=== PATIENT | male | born 1985 | race Caucasian/White ===

== ENCOUNTER 2017-07-05 22:50 | Emergency (ER) | payer SELFPAY ==
[2017-07-05 23:10] VITALS: BP 123/80; PULSE 102; RESP 18; TEMP 98.4; O2SAT 100
[2017-07-05] MEDS ORDERED: LORazepam 2 MG/ML VIAL IM ONE (23:45)
--- NOTE | 2017-07-05 23:56 | PD ---
HPI Chief Complaint: Psychiatric Symptoms Time Seen by Provider: 23:41 Travel History International Travel<30 days: No Contact w/Intl Traveler<30days: No Traveled to known affect area: No History of Present Illness HPI This patient is a daily smoker of heroin. He denies alcohol or IV drug abuse. He has had a lot of difficulty controlling his drug habits. This is caused him to be depressed and today started to have some suicidal thoughts. He presents for voluntary psychiatric evaluation. He denies any acute physical symptoms or complaints other than feeling anxious. Duration 1 week. Severity is moderate. No alleviating factors. Symptoms exacerbated by his drug use. [facility] [place] Social History Alcohol Use: No Tobacco Use: No Substance Use: Yes Allergies-Medications (Allergen,Severity, Reaction): Coded Allergies: No Known Allergies (Unverified , 07/05/17) Review of Systems General / Constitutional: No: Fever Eyes: No: Visual changes HENT: No: Headaches Cardiovascular: No: Chest Pain or Discomfort Respiratory: No: Shortness of Breath Gastrointestinal: No: Abdominal Pain Genitourinary: No: Dysuria Musculoskeletal: No: Pain Skin: No Rash Neurologic: No: Weakness Psychiatric: Positive: Anxiety, Depression, Suicidal Ideations, Substance Abuse Endocrine: No: Polydipsia Hematologic/Lymphatic: No: Easy Bruising Physical Exam Narrative GENERAL: Disheveled well-developed patient with anxiety and depression . SKIN: Focused skin assessment reveals no rash and nodules. Skin is Warm and dry. HEAD: Atraumatic. Normocephalic. EYES: Pupils equal and round. No scleral icterus. No injection or drainage. ENT: No nasal bleeding or discharge. Mucous membranes pink and moist. NECK: Trachea midline. No JVD. CARDIOVASCULAR: Regular rate and rhythm. No murmur appreciated. RESPIRATORY: No accessory muscle use. Clear to auscultation. Breath sounds equal bilaterally. GASTROINTESTINAL: Abdomen soft, non-tender, nondistended. Hepatic and splenic margins not palpable. MUSCULOSKELETAL: No obvious deformities. No clubbing. No cyanosis. No edema. NEUROLOGICAL: Awake and alert. No obvious cranial nerve deficits. Motor grossly within normal limits. Normal speech. PSYCHIATRIC: Anxious mood and affect; insight and judgment poor Data Data Last Documented VS Vital Signs Date Time Temp Pulse Resp B/P (MAP) Pulse Ox O2 Delivery O2 Flow Rate FiO2 07/05/17 23:10 98.4 102 18 123/80 (94) 100 Orders Orders Complete Blood Count With Diff (07/05/17 23:45) Comprehensive Metabolic Panel (07/05/17 23:45) Thyroid Stimulating Hormone (07/05/17 23:45) Psych Screen (07/05/17 23:45) Drug Screen, Random Urine (07/05/17 23:45) Alcohol (Ethanol) (07/05/17 23:45) Lorazepam Inj (Ativan Inj) (07/05/17 23:45) MDM Medical Decision Making Medical Screen Exam Complete: Yes Emergency Medical Condition: Yes Medical Record Reviewed: Yes Differential Diagnosis Suicidal ideation, depression, substance abuse Narrative Course I have reviewed the patient's electronic medical record. I have ordered medical clearance workup to include lab studies and toxicology screen I gave him an injection of Ativan for his anxiety He desires psychiatric evaluation so I have ordered psychiatric screening Diagnosis Primary Impression: Depression with suicidal ideation Additional Impressions: Substance abuse Anxiety Isidro Richter MD July 05, 2017 23:56
[2017-07-06 00:11] LABS: AUTOMATED NEUTROPHIL # 7.9 TH/MM3 (1.8-7.7); BASOPHIL # 0.1 TH/MM3 (0-0.2); BASOPHIL % 0.5 % (0.0-2.0); EOSINOPHIL # 0.1 TH/MM3 (0-0.4); EOSINOPHIL % 0.5 % (0.0-4.0); HEMOGLOBIN 12.5 GM/DL (13.0-17.0); LYMPH % 25.6 % (9.0-44.0); MEAN CELL VOLUME 87.6 FL (80.0-100.0); MEAN CORPUSCULAR HEMOGLOBIN 29.5 PG (27.0-34.0); MEAN CORPUSCULAR HGB CONC 33.7 % (32.0-36.0); MEAN PLATELET VOLUME 6.9 FL (7.0-11.0); MONO % 4.9 % (0.0-8.0); MONOCYTE # 0.6 TH/MM3 (0-0.9); NEUT % 68.5 % (16.0-70.0); PLATELET COUNT 357 TH/MM3 (150-450); RED BLOOD COUNT 4.22 MIL/MM3 (4.50-5.90); RED CELL DISTRIBUTION WIDTH 13.7 % (11.6-17.2); WHITE BLOOD COUNT 11.5 TH/MM3 (4.0-11.0)
[2017-07-06 00:35] LABS: ALBUMIN 3.8 GM/DL (3.4-5.0); ALT (GPT) 21 U/L (12-78); AST (GOT) 22 U/L (15-37); BICARBONATE 28.2 MEQ/L (21.0-32.0); BLOOD UREA NITROGEN 12 MG/DL (7-18); CALCIUM 8.7 MG/DL (8.5-10.1); CHLORIDE 104 MEQ/L (98-107); CREATININE 0.93 MG/DL (0.60-1.30); GLOMERULAR FILTRATION RATE 95 ML/MIN (>89); GLUCOSE,RANDOM 135 MG/DL (74-106); SODIUM (NA) 142 MEQ/L (136-145)
[2017-07-06 00:44] LABS: ALKALINE PHOSPHATASE 54 U/L (45-117); TOTAL BILIRUBIN ADULT 0.4 MG/DL (0.2-1.0)
[2017-07-06 09:28] VITALS: BP 108/61; PULSE 97; RESP 19; O2SAT 99
--- NOTE | 2017-07-06 11:57 | PD ---
Physical Exam Time Seen by Provider: 11:55 Narrative ROMEO Adan has evaluated patient and cleared the patient for discharge. Data Data Last Documented VS Vital Signs Date Time Temp Pulse Resp B/P (MAP) Pulse Ox O2 Delivery O2 Flow Rate FiO2 07/06/17 09:28 97 19 108/61 (77) 99 07/05/17 23:10 98.4 Orders Orders Complete Blood Count With Diff (07/05/17 23:45) Comprehensive Metabolic Panel (07/05/17 23:45) Thyroid Stimulating Hormone (07/05/17 23:45) Psych Screen (07/05/17 23:45) Drug Screen, Random Urine (07/05/17 23:45) Alcohol (Ethanol) (07/05/17 23:45) Lorazepam Inj (Ativan Inj) (07/05/17 23:45) Diet Regular Basic (07/06/17 Breakfast) Labs Laboratory Tests Test 07/05/17 23:55 07/06/17 01:00 White Blood Count 11.5 TH/MM3 Red Blood Count 4.22 MIL/MM3 Hemoglobin 12.5 GM/DL Hematocrit 37.0 % Mean Corpuscular Volume 87.6 FL Mean Corpuscular Hemoglobin 29.5 PG Mean Corpuscular Hemoglobin Concent 33.7 % Red Cell Distribution Width 13.7 % Platelet Count 357 TH/MM3 Mean Platelet Volume 6.9 FL Neutrophils (%) (Auto) 68.5 % Lymphocytes (%) (Auto) 25.6 % Monocytes (%) (Auto) 4.9 % Eosinophils (%) (Auto) 0.5 % Basophils (%) (Auto) 0.5 % Neutrophils # (Auto) 7.9 TH/MM3 Lymphocytes # (Auto) 3.0 TH/MM3 Monocytes # (Auto) 0.6 TH/MM3 Eosinophils # (Auto) 0.1 TH/MM3 Basophils # (Auto) 0.1 TH/MM3 CBC Comment DIFF FINAL Differential Comment Blood Urea Nitrogen 12 MG/DL Creatinine 0.93 MG/DL Random Glucose 135 MG/DL Total Protein 7.0 GM/DL Albumin 3.8 GM/DL Calcium Level 8.7 MG/DL Alkaline Phosphatase 54 U/L Aspartate Amino Transf (AST/SGOT) 22 U/L Alanine Aminotransferase (ALT/SGPT) 21 U/L Total Bilirubin 0.4 MG/DL Sodium Level 142 MEQ/L Potassium Level 3.3 MEQ/L Chloride Level 104 MEQ/L Carbon Dioxide Level 28.2 MEQ/L Anion Gap 10 MEQ/L Estimat Glomerular Filtration Rate 95 ML/MIN Thyroid Stimulating Hormone 3rd Gen 0.963 uIU/ML Ethyl Alcohol Level LESS THAN 3 MG/DL Urine Opiates Screen POS Urine Barbiturates Screen NEG Urine Amphetamines Screen NEG Urine Benzodiazepines Screen NEG Urine Cocaine Screen NEG Urine Cannabinoids Screen POS MDM Supervised Visit with JASON: No Narrative Course ROMEO Adan has evaluated patient and cleared the patient for discharge. Patient contracts safety. Denies suicidal or homicidal ideations. Patient will be provided community resource packet to /[facility] for follow-up. Has friends and family for support. Patient was medically cleared by alternate provider prior to psych screening. Patient has been evaluated by psychiatry and and is now cleared for discharge. Diagnosis Primary Impression: Depression with suicidal ideation Additional Impressions: Substance abuse Anxiety Referrals: [facility] (Out patient) [facility] Primary Care Physician Psychiatrist Louise [facility] Patient Instructions: Anxiety (ED), Depression (ED), General Instructions, Polysubstance Abuse (ED) Additional Instruction: Contract safety to your self and others Stop using drugs Follow-up in the community for community support, such as with Narcotics Anonymous Follow-up with psychiatry Follow-up with primary care provider Follow-up with [facility] Return to the emergency department immediately with worsening of symptoms Med/Other Pt SpecificInfo: No Change to Meds, No Meds Exist/No RX given Disposition: 01 DISCHARGE HOME Condition: Stable Kailey Gasca July 06, 2017 11:57
--- NOTE | 2017-07-06 12:07 | PD ---
History of Present Illness Chief Complaint: Psychiatric Symptoms Time Seen by Provider: 10:00 Travel History International Travel<30 Days: No Contact w/Intl Traveler<30days: No Known affected area: No Legal Status Legal Status: Voluntary History of Present Illness: This is a 32-year-old single, male who presents voluntarily to this facility for self-reported heroin use and anxiety. Patient previously has not been seen at this facility. Reviewed electronic medical record, labs, and discussed case with staff. Patient is positive for opiates and cannabinoids. He was examined in his room and the main ED. He is awake, alert, and oriented 4. His speech is clear, logical, and organized. His mood is overall sad as is his affect. However, he does interact appropriately throughout the interview and smiles and laughs inappropriate places. He does not appear internally stimulated nor is there evidence of thought blocking. Patient reports that last week he was in detox at [facility]. He was released and had been clean for "8 days". He states that he developed severe withdrawal from the Suboxone and had difficulty sleeping. He reports that he "thought I could use a little heroin to help me sleep". 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 He has a mother in the area although he is not allowed to stay there. He reports that his mother has his 4 year old daughter at this time. He denies feeling suicidal , homicidal, experiencing visual or auditory delusions. I can elicit no delusional material. He does state that he is upset with himself for having relapsed and feels depressed about that. He denies previous mental illness or suicidal attempts. He does mention his concern about being homeless. Discussed various options with patient he chooses not to go to the [facility] outpatient because, "I do not want to go back on Suboxone that is worse than getting off the heroin". During conversation he mentioned concern that he had received Ativan during his visit and stated, "I have drug court on Wednesday". Patient seem to be seeking a secondary gain of a note to explain his heroin use. However, I explained that they are from different drug classes. Patient expressed concern about where he would be staying prior to going to court. [facility] Past Medical History Medical History: Denies Significant Hx Past Surgical History Surgical History: No Previous Surgery Psychiatric History Psychiatric History Denies any previous psychiatric history. Hx Psychiatric Treatment: DENIES History of Inpatient Treatment: No Guns or firearms in home: No Social History Had been living with his mother and 4-year-old daughter. Patient reports that he is now homeless. Recent detox for heroin use. He states that he was a "oxycodone abuser for 8-1/2 years, I had only been using heroin for 6 weeks". Reports that he smokes heroin states that he is "too afraid of needles to inject ". Patient smokes cigarettes. He reports that he works hanging [employer]. Hx Alcohol Use: No Hx Tobacco Use: No Hx Substance Use: Yes Substance Use Type: Heroin Hx of Substance Use Treatment: Yes Allergies-Medications (Allergen,Severity, Reaction): Coded Allergies: No Known Allergies (Unverified , 07/05/17) Mental Status Examination Appearance: Appropriate Consciousness: Alert Orientation: x4 Motor Activity: Normal gait Speech: Unremarkable Language: Adequate Fund of Knowledge: Adequate Attention and Concentration: Adequate Memory: Unremarkable Mood: Appropriate, Sad Affect: Appropriate, Sad Thought Process & Associations: Intact Thought Content: Appropriate Hallucination Type: None Delusion Type: None Suicidal Ideation: No Suicidal Plan: No Suicidal Intention: No Homicidal Ideation: No Homicidal Plan: No Homicidal Intention: No Insight: Fair Judgment: Impulsive MDM Medical Decision Making Medical Record Reviewed: Yes Assessment/Plan 32-year-old single, male presents voluntarily to this facility for self-reported relapse of heroin use and anxiety. Upon examination this morning patient is alert and oriented 4. His speech is clear, logical, and organized. There is no indication of internal stimulation nor thought blocking. He denies feeling suicidal, homicidal, experiencing visual or auditory hallucinations. Patient is future oriented discussing a future court date, his relationship with his daughter, his work, and plans for managing his recovery. He does mention concern about being homeless. He states that his anxiety comes more from his disappointment that he relapsed. He does not meet inpatient admission criteria at this time. Discussed follow-up plan and patient prefers not to go to [facility] outpatient for management of heroin use. He states that the Suboxone was as difficult to kick as the heroin itself. [facility] and told to return to this facility if his condition should worsen. Orders Orders Complete Blood Count With Diff (07/05/17 23:45) Comprehensive Metabolic Panel (07/05/17 23:45) Thyroid Stimulating Hormone (07/05/17 23:45) Psych Screen (07/05/17 23:45) Drug Screen, Random Urine (07/05/17 23:45) Alcohol (Ethanol) (07/05/17 23:45) Lorazepam Inj (Ativan Inj) (07/05/17 23:45) Diet Regular Basic (07/06/17 Breakfast) Results Vital Signs Date Time Temp Pulse Resp B/P (MAP) Pulse Ox O2 Delivery O2 Flow Rate FiO2 07/06/17 09:28 97 19 108/61 (77) 99 07/05/17 23:10 98.4 102 18 123/80 (94) 100 Laboratory Tests Test 07/05/17 23:55 07/06/17 01:00 White Blood Count 11.5 Red Blood Count 4.22 Hemoglobin 12.5 Hematocrit 37.0 Mean Corpuscular Volume 87.6 Mean Corpuscular Hemoglobin 29.5 Mean Corpuscular Hemoglobin Concent 33.7 Red Cell Distribution Width 13.7 Platelet Count 357 Mean Platelet Volume 6.9 Neutrophils (%) (Auto) 68.5 Lymphocytes (%) (Auto) 25.6 Monocytes (%) (Auto) 4.9 Eosinophils (%) (Auto) 0.5 Basophils (%) (Auto) 0.5 Neutrophils # (Auto) 7.9 Lymphocytes # (Auto) 3.0 Monocytes # (Auto) 0.6 Eosinophils # (Auto) 0.1 Basophils # (Auto) 0.1 CBC Comment DIFF FINAL Differential Comment Blood Urea Nitrogen 12 Creatinine 0.93 Random Glucose 135 Total Protein 7.0 Albumin 3.8 Calcium Level 8.7 Alkaline Phosphatase 54 Aspartate Amino Transf (AST/SGOT) 22 Alanine Aminotransferase (ALT/SGPT) 21 Total Bilirubin 0.4 Sodium Level 142 Potassium Level 3.3 Chloride Level 104 Carbon Dioxide Level 28.2 Anion Gap 10 Estimat Glomerular Filtration Rate 95 Thyroid Stimulating Hormone 3rd Gen 0.963 Ethyl Alcohol Level LESS THAN 3 Urine Opiates Screen POS Urine Barbiturates Screen NEG Urine Amphetamines Screen NEG Urine Benzodiazepines Screen NEG Urine Cocaine Screen NEG Urine Cannabinoids Screen POS Diagnosis Primary Impression: 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
== END 2017-07-06 13:16 | disposition home or self-care (01) ==
LOC: NEPD 22:50
DX: F19.14 Other psychoactive substance abuse with psychoactive substance-induced mood disorder (principal); F41.9 Anxiety disorder, unspecified
CPT/HCPCS: 80053; 80307; 84443; 85025; 96372; 99283; J2060